=== PATIENT | male | born 1955 | race Caucasian/White ===

== ENCOUNTER 2019-06-25 17:22 | Emergency (ER) | payer MEDICARE, OTHER ==
[2019-06-25 17:52] VITALS: BP 168/94
[2019-06-25] MEDS ORDERED: CYCL-331 PO (17:54)
--- NOTE | 2019-06-25 17:54 | PHYS DOC ---
Adult General Chief Complaint Chief Complaint: BACK PAIN OR INJURY HPI HPI 64-year-old male presenting the emergency department today with lower back pain. He has a history of sciatica. He recently had an MRI which showed degenerative back disease. He was given prednisone for pain which she took one dose of, however does not want to take prednisone because is concerned about not being able sleep. The pain is a sharp shooting pain that radiates down into his buttocks bilaterally. He denies any recent trauma. He intermittently will have tingling in his feet but denies any weakness of the legs. Medical hx:chronic back social: nonsmoker ROS neg for cp/soa/n/v/f/c. all other ros is neg. ED course: 64-year-old male presenting with acute on chronic back pain. We'll give him a shot of hydromorphone here in the emergency department. We will discharge him home with oral Flexeril. He already has opiates at home from his primary physician. He will follow up with his primary physician in one to 2 days. Return precautions given. Physical Exam Physical Exam Constitutional: Well developed, well nourished, no acute distress, non-toxic appearance. [] HENT: Normocephalic, atraumatic, bilateral external ears normal, oropharynx moist, no oral exudates, nose normal. [] Eyes: PERRLA, EOMI, conjunctiva normal, no discharge. [] Neck: Normal range of motion, no tenderness, supple, no stridor. [] Cardiovascular:Heart rate regular rhythm, no murmur [] Lungs & Thorax: Bilateral breath sounds clear to auscultation [] Abdomen: Bowel sounds normal, soft, no tenderness, no masses, no pulsatile masses. [] Skin: Warm, dry, no erythema, no rash. [] Back: Tenderness along the lower lumbar region and sacrum. Tenderness into the paraspinal musculature as well. No step-offs. Extremities: No tenderness, no cyanosis, no clubbing, ROM intact, no edema. [] Neurologic: Alert and oriented X 3, normal motor function, normal sensory function, no focal deficits noted. [] Psychologic: Affect normal, judgement normal, mood normal. [] EKG EKG [] Radiology/Procedures Radiology/Procedures [] Course & Med Decision Making Course & Med Decision Making Pertinent Labs and Imaging studies reviewed. (See chart for details) [] Dragon Disclaimer Dragon Disclaimer This electronic medical record was generated, in whole or in part, using a voice recognition dictation system. Departure Departure: Impression: Primary Impression: Lumbar radiculopathy Additional Impression: Sciatica Disposition: 01 HOME, SELF-CARE Condition: STABLE Referrals: ABBY LEE MD (PCP) Patient Instructions: Back Pain, Adult Additional Instructions: Thank you for allowing us to participate in your care today. Return to the emergency department you have any new or worsening symptoms, or if you are concerned for any reason. Return to emergency department if you have any new or concerning symptoms including but not limited to fever, chills, nausea, vomiting, intractable pain, any new rashes, chest pain, shortness of air, uncontrolled bleeding, difficulty breathing, and/or vision loss. Follow up with your primary care physician within 1-2 days. Call your Primary Doctor tomorrow and inform them of your visit today. If you do not have a primary care provider we are happy to provide you with a list of our primary care providers contact information. This condition should be evaluated by your primary care physician and any recommended consulting services for continued management within 2 days after discharge. If at any time, you are having difficulty getting into your primary care doctor or a specialist, return to the emergency department. Scripts Cyclobenzaprine Hcl (CYCLOBENZAPRINE HCL) 10 Mg Tablet 1 TAB PO TID for back pain, #12 TAB 0 Refills Prov: DELMI SAVAGE MD 06/25/19 Problem Qualifiers DELMI SAVAGE MD Jun 25, 2019 17:54
[2019-06-25] MEDS ORDERED: HYDROmorphone PF 1 MG/ML DISP.SYRIN IM ONE (18:00)
== END 2019-06-25 18:03 | disposition home or self-care (01) ==
LOC: ER 17:22
DX: M54.16 Radiculopathy, lumbar region (principal); M54.42 Lumbago with sciatica, left side; G89.29 Other chronic pain
CPT/HCPCS: 99283